=== PATIENT | male | born 1985 | race Two or more races ===

== ENCOUNTER 2017-01-10 02:45 | Emergency (ER) | payer OTHER, MEDICAID ==
[~2017-01-10] VITALS: Ht 170.2 cm; Wt 59.0 kg
[2017-01-10] MEDS ORDERED: KETOROLAC 30MG/ML VIAL IM ONE (06:00)
[2017-01-10] MEDS ORDERED: ONDANSETRON 4MG ODT PO ONE (06:00)
[2017-01-10] MEDS ORDERED: BACITRACIN ZINC OINT UDPKT TOP ONE (06:30)
[2017-01-10] MEDS ORDERED: TETANUS, DIPHTHERIA, PERTUSSIS VAC/PF 0.5ML (>7YR OLD) IM ONE (06:30)
[2017-01-10] MEDS ORDERED: LIDOCAINE HCL 1%/EPI 1:200,000 30 ML VIAL MC ONE (06:30)
[2017-01-10 07:42] VITALS: BP 129/75
[2017-01-10] MEDS ORDERED: TETRACAINE 0.5% OPHTH DROPS 4ML BOTHEYE ONE (08:30)
== END 2017-01-10 09:02 | disposition home or self-care (01) ==
LOC: ER 06:34
PROC: 08QRXZZ Repair Left Lower Eyelid, External Approach (ICD-10-PCS; principal; 2017-01-10)
DX: S01.111A Laceration without foreign body of right eyelid and periocular area, initial encounter (principal); S02.2XXA Fracture of nasal bones, initial encounter for closed fracture; S02.82XA Fracture of other specified skull and facial bones, left side, initial encounter for closed fracture; Y08.89XA Assault by other specified means, initial encounter; Y93.89 Activity, other specified; Y92.89 Other specified places as the place of occurrence of the external cause
CPT/HCPCS: 12011; 70450; 70486; 90471; 90715; 96372; 99284; J1885; Z7610